=== PATIENT | male | born 1940 | race Caucasian/White ===

== ENCOUNTER 2018-08-19 16:07 | Inpatient (IN) | payer OTHER ==
[~2018-08-19] VITALS: Ht 180.3 cm; Wt 131.5 kg
[~2018-08-19 16:07] MED LIST changes: -LASIX 80 MG TAB80 MG PO; -SPIRIVA INH; -SPIRONOLACTONE25 M1 PO; -XARELTO15 MG PO; -XARELTO20 MG PO; -XULTOPHY 100 UNI3 ML SUBQ
[2018-08-19 16:15] VITALS: BP 133/78
[2018-08-19 16:39] LABS: ABSOLUTE BASOPHILS 0.1 thou/uL (0.0-0.2); ABSOLUTE EOSINOPHILS 0.3 thou/uL (0.0-0.7); ABSOLUTE LYMPHOCYTES 1.7 thou/uL (0.8-5.3); ABSOLUTE MONOCYTES 0.9 thou/uL (0.0-1.2); ABSOLUTE NEUTROPHILS 5.5 thou/uL (1.6-8.1); BASOPHILS 1.1 %; EOSINOPHILS 3.5 %; HEMATOCRIT 45.5 % (42.0-52.0); HEMOGLOBIN 15.4 gm/dL (14.0-18.0); LYMPHOCYTES 19.7 %; MCH 30.7 pg (26.0-34.0); MCHC 33.7 g/dL (28.0-37.0); MONOCYTES 10.1 %; NUCLEATED RBCS 0 /100WBC; PLATELET COUNT* 188 thou/uL (150-400); POLYS 65.6 %; RDW-CV 13.3 % (10.5-14.5); WBC 8.4 thou/uL (4.0-11.0)
[2018-08-19 16:50] LABS: ANION GAP 5 mmol/L (7-16); BUN 24 mg/dL (7-18); CALCIUM 9.2 mg/dL (8.5-10.1); CHLORIDE 100 mmol/L (98-107); CO2 31 mmol/L (21-32); CREATININE 1.3 mg/dL (0.6-1.3); GLUCOSE 202 mg/dL (70-99); POTASSIUM 4.2 mmol/L (3.5-5.1); SODIUM 136 mmol/L (136-145)
[2018-08-19 17:02] LABS: ALBUMIN 3.6 g/dL (3.4-5.0); ALKALINE PHOSPHATASE 112 U/L (46-116); NT-PRO BRAIN NAT PEPTIDE 139 pg/mL (<300); SGOT 22 U/L (15-37); SGPT 33 U/L (30-65); TOTAL BILIRUBIN 1.1 mg/dL (<0.1-1.0); TOTAL PROTEIN 7.5 g/dL (6.4-8.2); TROPONIN-I LEVEL <0.06 ng/mL (<0.06)
[2018-08-19] MEDS ORDERED: SPIRONOLACTONE25 M1 PO ×2 (17:06)
[2018-08-19] MEDS ORDERED: LASIX 80 MG TAB80 MG PO ×2 (17:08)
[2018-08-19] MEDS ORDERED: XULTOPHY 100 UNI3 ML SUBQ ×2 (17:11)
[2018-08-19 20:15] VITALS: BP 118/75
[2018-08-19 20:25] VITALS: BP 141/70
[2018-08-20] VITALS: BP 106/44
[2018-08-20 02:24] LABS: ABSOLUTE BASOPHILS 0.1 thou/uL (0.0-0.2); ABSOLUTE EOSINOPHILS 0.3 thou/uL (0.0-0.7); ABSOLUTE LYMPHOCYTES 2.1 thou/uL (0.8-5.3); ABSOLUTE MONOCYTES 0.7 thou/uL (0.0-1.2); ABSOLUTE NEUTROPHILS 5.1 thou/uL (1.6-8.1); BASOPHILS 0.8 %; EOSINOPHILS 4.1 %; HEMATOCRIT 43.5 % (42.0-52.0); HEMOGLOBIN 14.8 gm/dL (14.0-18.0); LYMPHOCYTES 25.2 %; MCH 30.7 pg (26.0-34.0); MCV 90.5 fL (80.0-100.0); MONOCYTES 8.6 %; MPV 9.2 fl. (7.2-11.1); NUCLEATED RBCS 0 /100WBC; PLATELET COUNT* 171 thou/uL (150-400); POLYS 61.3 %; RBC 4.81 mil/uL (4.50-6.00); RDW-CV 13.1 % (10.5-14.5); WBC 8.3 thou/uL (4.0-11.0)
--- NOTE | 2018-08-20 02:54 | NUR ---
TRANSFER FROM ED, RECIEVED REPORT, AND ASSUMED CARE FOR PT AT 2015. BALLISTICS TESTER IN PLACE. VITAL SIGNS STABLE. PT DENIES ANY PAIN AT THIS TIME. ASSESSMENT COMPLETED AND DISCUSSED PLAN OF CARE AND PT AND DAUGHTER UNDERSTAND. PT IS UP ADLIB. BED LOCKED, AND CALL LIGHT WITHIN REACH. HOURLY ROUNDING DONE AND ALL NEEDS MET. NURSING WILL CONTINUE TO MONITOR.
[2018-08-20 03:13] LABS: CALCIUM 9.1 mg/dL (8.5-10.1); CREATININE 1.4 mg/dL (0.6-1.3); MAGNESIUM 2.3 mg/dL (1.8-2.4); POTASSIUM 4.1 mmol/L (3.5-5.1)
[2018-08-20 04:00] VITALS: BP 128/73
[2018-08-20 08:00] VITALS: BP 118/86
--- NOTE | 2018-08-20 10:24 | EKG ---
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: John RODRIGUES : 1940 Requested By: Kirt Wood Order Number: [id number] MD: Mickey Yost Measurements Intervals [place] Rate: 69 P: -60 CA: 127 QRS: -5 QRSD: 172 T: 26 QT: 438 QTc: 470 Interpretive Statements Sinus or ectopic atrial rhythm Right bundle branch block Compared to ECG 04/10/2016 10:45:06 Ectopic atrial rhythm now present Right bundle-branch block now present Electronically Signed On 08-20-2018 10:23:56 PAPER [employer] MACHINE TENDER by Mickey Yost [email or web address] <ELECTRONICALLY SIGNED> By: Mickey Yost MD, FAC 08/20/18 1023 1629 1629 Mickey Yost MD, [facility] /EPI
[2018-08-20 11:43] VITALS: BP 134/59
[2018-08-20] MEDS ORDERED: XARELTO15 MG PO ×2 (13:41)
[2018-08-20] MEDS ORDERED: XARELTO20 MG PO ×2 (13:42)
[2018-08-20] MEDS ORDERED: SPIRIVA INH ×2 (13:43)
--- NOTE | 2018-08-20 13:49 | NUR ---
CHECKED [facility] COVERAGE THRU [facility]. COPAY PER MONTH IS $47. [facility] IS OUT OF [facility] SO PT WILL NEED TO FILL SCRIPT ELSEWHERE. UPDATED BIFANI/LESLEE
--- NOTE | 2018-08-20 13:49 | NUR ---
Pt is A&O. Resides at home with family. Active and independent. No DME. No hx of HH or SNF. Pt discharging home today. [place] scripted called in to Pt's pharmacy, will cost Pt $47/month. Updated Pt and he is able to afford. Cardiology provided samples and CM provided Pt with a 30 day free copay card. Dtr to transport.
[2018-08-20 14:34] VITALS: BP 134/59
[2018-08-20 21:07] LABS: GLYCOHEMOGLOBIN (HGB A1C) 9.9 % (4.8-5.6)
== END 2018-08-20 15:15 | disposition home or self-care (01) | DRG 176 ==
LOC: M.ERS 16:07 → M.2W 18:45 → M.TBA-ER 18:45 → M.2W 19:22
PROVIDERS: Emergency Medicine Emergency Medical Services; ADMIT Family Medicine
DX: I26.99 Other pulmonary embolism without acute cor pulmonale (principal); Z68.41 Body mass index [BMI] 40.0-44.9, adult; E66.01 Morbid (severe) obesity due to excess calories; I25.10 Atherosclerotic heart disease of native coronary artery without angina pectoris; N18.3 Chronic kidney disease, stage 3 (moderate); G47.33 Obstructive sleep apnea (adult) (pediatric); E11.22 Type 2 diabetes mellitus with diabetic chronic kidney disease; E11.65 Type 2 diabetes mellitus with hyperglycemia; I12.9 Hypertensive chronic kidney disease with stage 1 through stage 4 chronic kidney disease, or unspecified chronic kidney disease; J44.9 Chronic obstructive pulmonary disease, unspecified; E78.5 Hyperlipidemia, unspecified; Z98.52 Vasectomy status; Z88.6 Allergy status to analgesic agent; Z87.891 Personal history of nicotine dependence; Z95.2 Presence of prosthetic heart valve; Z79.4 Long term (current) use of insulin; Z79.82 Long term (current) use of aspirin; Z79.899 Other long term (current) drug therapy; Z95.1 Presence of aortocoronary bypass graft

== ENCOUNTER → 2018-08-19 | Outpatient (CLI) | payer OTHER ==
[~2018-08-19] MED LIST: AMARYL2 MG PO; ATORVASTATIN CA40 MG PO; CRESTOR20 MG; CRESTOR20 MG PO; FLAGYL500 MG PO; HYDROCODON-ACE1 EAC7 PO; IMDUR 30 MG TAB30 M1 PO; K-DUR 20 MEQ T20 MEQ PO; LASIX 40 MG TAB40 M1 PO; LASIX 40 MG TAB40 M2 PO; LASIX 80 MG TAB80 MG PO; LISINOPRIL5 MG; LOPRESSOR25 PO; MAGNESIUM400 MG PO; METFORMIN HCL500 MG PO; METOPROLOL SUCC50 MG PO; PLAVIX 75 MG TA75 M1 PO; POTASSIUM20 PO; PRINIVIL5 MG PO; SPIRIVA INH; SPIRONOLACTONE25 M1 PO; SYNTHROID100 MCG PO; TOUJEO SOL300 UNIT/1 SQ; TYLENOL325 MG PO; XARELTO15 MG PO; XARELTO20 MG PO; XULTOPHY 100 UNI3 ML SUBQ; ZESTRIL10 MG PO; ZESTRIL5 MG PO; ZYRTEC10 M2 PO; ZYRTEC10 MG PO
[2018-08-19 11:19] LABS: ABSOLUTE BASOPHILS 0.1 thou/uL (0.0-0.2); ABSOLUTE EOSINOPHILS 0.3 thou/uL (0.0-0.7); ABSOLUTE LYMPHOCYTES 1.6 thou/uL (0.8-5.3); ABSOLUTE MONOCYTES 0.8 thou/uL (0.0-1.2); ABSOLUTE NEUTROPHILS 5.5 thou/uL (1.6-8.1); BASOPHILS 0.7 %; HEMATOCRIT 46.3 % (42.0-52.0); HEMOGLOBIN 15.7 gm/dL (14.0-18.0); LYMPHOCYTES 19.6 %; MCH 30.8 pg (26.0-34.0); MCHC 33.8 g/dL (28.0-37.0); MCV 91.3 fL (80.0-100.0); MONOCYTES 9.8 %; NUCLEATED RBCS 0 /100WBC; PLATELET COUNT* 196 thou/uL (150-400); POLYS 65.9 %; RBC 5.08 mil/uL (4.50-6.00); RDW-CV 13.4 % (10.5-14.5); WBC 8.3 thou/uL (4.0-11.0)
[2018-08-19 11:35] LABS: ALBUMIN 3.6 g/dL (3.4-5.0); CALCIUM 9.3 mg/dL (8.5-10.1); CREATININE 1.2 mg/dL (0.6-1.3); POTASSIUM 4.5 mmol/L (3.5-5.1); TOTAL BILIRUBIN 1.3 mg/dL (<0.1-1.0); TOTAL PROTEIN 7.5 g/dL (6.4-8.2)
--- NOTE | 2018-08-20 15:27 | NUR ---
PT DISCHARGED HOME. COPY OF DISCHARGE PAPERWORK AND PRESCRIPTIONS TO PT AND HIS DAUGHTER WITH EXPLAINATION. BOTH VERBALIZED UNDERSTANDING. IV ACCESS AND MANAGER PSYCHOLOGY REMOVED. PT TAKEN PER WHEELCHAIR TO MAIN ENTRANCE AND SUPERVISED BY STAFF TO GET INTO HIS DAUGHTERS' CAR.
== END ==
LOC: M.LAB 10:56
PROVIDERS: Nurse Practitioner
DX: I50.32 Chronic diastolic (congestive) heart failure (principal); R06.02 Shortness of breath

== ENCOUNTER 2018-08-21 14:05 | Emergency (ER) | payer OTHER ==
[~2018-08-21] VITALS: Ht 177.8 cm; Wt 129.3 kg
[~2018-08-21 14:05] MED LIST changes: +LASIX 80 MG TAB80 MG PO; +SPIRIVA INH; +SPIRONOLACTONE25 M1 PO; +XARELTO15 MG PO; +XARELTO20 MG PO; +XULTOPHY 100 UNI3 ML SUBQ
[2018-08-21 15:13] VITALS: BP 163/64
== END 2018-08-21 15:14 | disposition home or self-care (01) ==
LOC: M.ERS 14:05
DX: R04.0 Epistaxis (principal); I10 Essential (primary) hypertension; I25.10 Atherosclerotic heart disease of native coronary artery without angina pectoris; J44.9 Chronic obstructive pulmonary disease, unspecified; Z88.6 Allergy status to analgesic agent